=== PATIENT | male | born 1980 | race African-American/Black ===

== ENCOUNTER 2018-10-10 14:31 | Emergency (ER) | payer OTHER ==
[2018-10-10 14:42] VITALS: BMI 20.6
[2018-10-10] MEDS ORDERED: SODIUM CHLORIDE 1,000 ML IV STA (15:00)
[2018-10-10] MEDS ORDERED: ONDANSETRON 4 MG/2 ML VIAL IVPUSH ONE ×2 (15:00→16:44)
[2018-10-10] MEDS ORDERED: KETOROLAC TROMETHAMINE 30 MG/1 ML VIAL IVPUSH ONE (15:00)
[2018-10-10] MEDS ORDERED: PANTOPRAZOLE SODIUM 40 MG in SODIUM CHLORIDE 100 ML IVPB ONE (15:00)
[2018-10-10] MEDS ORDERED: PANTOPRAZOLE SODIUM 40 MG/100 ML BAG IVPB ONE (15:11)
[2018-10-10 15:32] LABS: BASO % 1.2 % (0-2.0); EOS % 3.4 % (0-4.5); HEMATOCRIT 42.7 % (35.4-49); HEMOGLOBIN 14.2 GM/dL (11.7-16.9); LYMPH % 35.2 % (8-40); MCH 30.3 pg (25.7-33.7); MCHC 33.3 g/dl (32.0-35.9); MEAN PLT VOLUME 8.8 fl (7.5-11.1); MONO % 5.5 % (3.8-10.2); NEUT % 54.7 % (42.8-82.8); PLATELET COUNT 250 K/MM3 (134-434); RBC 4.69 M/mm3 (4.00-5.60); WHITE BLOOD COUNT 9.1 K/mm3 (4.0-10.0)
--- NOTE | 2018-10-10 15:43 | PDOC ---
History of Present Illness - General Chief Complaint: Pain Stated Complaint: ABD PAIN History Source: Patient Exam Limitations: No Limitations - History of Present Illness Travel History: No Initial Comments: 10/10/18 15:09 38-year-old male with history of gastritis currently on Prilosec presents the ED with complaints of mild nausea and sour feeling to epigastric area for the past week intermittently without relief of Maalox and Zantac. Patient states does drink alcohol and smokes marijuana daily basis and often eats processed fast food patient denies any recent travel, recent weight loss, diarrhea, vomiting, chest pain, difficulty breathing or abdominal distention. Timing/Duration: reports: intermittent Quality: reports: mild, dullness Abdominal Pain Onset Location: reports: epigastric Pain Radiation: reports: no radiation Activities at Onset: reports: none Aggravating Factors: improves with: Eating Alleviating Factors: improves with: None Past History - Travel Traveled outside of the country in the last 30 days: No Close contact w/someone who was outside of country & ill: No - Past Medical History Allergies/Adverse Reactions: Allergies Allergy/AdvReac Type Severity Reaction Status Date / Time No Known Allergies Allergy Verified 10/10/18 15:26 Home Medications: Ambulatory Orders Omeprazole 20 mg PO DAILY 10/10/18 Ondansetron HCl [Zofran] 4 mg PO QID #10 tablet 10/10/18 Sucralfate Oral Suspension [Carafate *Oral Susp*] 1 gm PO QID #42 gm 10/10/18 COPD: No GI Disorders: Yes - Immunization History Immunization Up to Date: Yes - Suicide/Smoking/Psychosocial Hx Smoking History: Current every day smoker Number of Cigarettes Smoked Daily: 20 Information on smoking cessation initiated: No Hx Alcohol Use: Yes Drug/Substance Use Hx: Yes ([facility]) Substance Use Type: Marijuana Patient Lives Alone: No Lives with/in: spouse/SO Abd/GI Specific PMHX - Complaint Specific PMHX GERD: Yes Review of Systems - Review of Systems Able to Perform ROS?: Yes Constitutional: No: Symptoms Reported HEENTM: No: Symptoms Reported Respiratory: No: Symptoms reported Cardiac (ROS): No: Symptoms Reported ABD/GI: Yes: Nausea, Indigestion : No: Symptoms Reported Musculoskeletal: No: Symptoms Reported Integumentary: No: Symptoms Reported Neurological: No: Symptoms reported Hematologic/Lymphatic: No: Symptoms Reported *Physical Exam - Vital Signs Last Vital Signs Temp Pulse Resp BP Pulse Ox 97.9 F 99 H 18 123/75 100 10/10/18 14:39 10/10/18 14:39 10/10/18 14:39 10/10/18 14:39 10/10/18 14:39 - Physical Exam General Appearance: Yes: Nourished, Appropriately Dressed. No: Apparent Distress HEENT: positive: EOMI, Pharynx Normal. negative: Pale Conjunctivae Neck: positive: Normal Thyroid, Supple Respiratory/Chest: positive: Lungs Clear, Normal Breath Sounds. negative: Respiratory Distress, Accessory Muscle Use Cardiovascular: positive: Regular Rhythm, Regular Rate. negative: Murmur Gastrointestinal/Abdominal: positive: Normal Bowel Sounds, Soft, Tenderness ( mild epigastric /right upper quadrant). negative: Distended Musculoskeletal: negative: CVA Tenderness Extremity: positive: Normal Inspection Integumentary: positive: Normal Color, Warm, Moist Neurologic: positive: Motor Strength 5/5 (ambulatory) ED Treatment Course - LABORATORY CBC & Chemistry Diagram: 10/10/18 15:08 10/10/18 15:08 - ADDITIONAL ORDERS Additional order review: 10/10/18 15:08 RBC 4.69 MCV 91.0 MCHC 33.3 RDW 14.0 MPV 8.8 Neutrophils % 54.7 Lymphocytes % 35.2 Monocytes % 5.5 Eosinophils % 3.4 Basophils % 1.2 - Medications Given in the ED: ED Medications Discontinued Medications Generic Name Dose Route Start Last Admin Trade Name Freq PRN Reason Stop Dose Admin Pantoprazole Sodium 40 mg/ 100 mls @ 200 mls/hr 10/10/18 15:00 10/10/18 15:25 Sodium Chloride IVPB 10/10/18 15:29 200 mls/hr ONCE ONE Administration Ketorolac Tromethamine 30 mg 10/10/18 15:00 10/10/18 15:26 Toradol Injection - IVPUSH 10/10/18 15:01 30 mg ONCE ONE Administration Ondansetron HCl 4 mg 10/10/18 15:00 10/10/18 15:34 Zofran Injection IVPUSH 10/10/18 15:01 4 mg ONCE ONE Administration Medical Decision Making - Medical Decision Making 10/10/18 15:22 Chief complaint: Feeling of nausea along with "sour" sensation for the past week after eating unrelieved with Maalox and his daily medication of Prilosec for history of GERD Exam patient mild epigastric and right upper quadrant tenderness vital signs stable. Plan CBC, comp, lipase IV protonic's, Zofran, Toradol and IV fluids ordered 10/10/18 15:44 Laboratory Tests 10/10/18 15:08 WBC 9.1 Hgb 14.2 Hct 42.7 Absolute Neuts (auto) 5.0 *DC/Admit/Observation/Transfer Diagnosis at time of Disposition: Gastritis - Discharge Dispostion Disposition: HOME Condition at time of disposition: Stable - Prescriptions Prescriptions: Ondansetron HCl [Zofran] 4 mg PO QID #10 tablet Sucralfate Oral Suspension [Carafate *Oral Susp*] 1 gm PO QID #42 gm - Referrals - Patient Instructions Printed Discharge Instructions: DI for Gastritis Additional Instructions: Your Discharge Instructions: You must call primary care physician within 24 hours to arrange follow-up. Return to the Emergency Department with any new, persistent or worsening symptoms, for fever, chills, SOB, dizziness or any other concerning changes that may occur. Her aircraft sales representative call to reschedule your appointment - Post Discharge Activity
[2018-10-10 15:53] LABS: ALBUMIN 4.1 g/dl (3.4-5.0); BILIRUBIN,TOTAL 1.1 mg/dL (0.2-1); BLOOD UREA NITROGEN 7.9 mg/dL (7-18); CALCIUM 9.6 mg/dL (8.5-10.1); CREATININE 1.1 mg/dL (0.55-1.3); MAGNESIUM 2.4 mg/dL (1.8-2.4); POTASSIUM 3.7 mmol/L (3.5-5.1); TOT PROT 7.1 g/dl (6.4-8.2)
--- NOTE | 2018-10-10 16:43 | PDOC ---
*Physical Exam - Vital Signs Last Vital Signs Temp Pulse Resp BP Pulse Ox 97.9 F 99 H 18 123/75 100 10/10/18 14:39 10/10/18 14:39 10/10/18 14:39 10/10/18 14:39 10/10/18 14:39 ED Treatment Course - LABORATORY CBC & Chemistry Diagram: 10/10/18 15:08 10/10/18 15:08 - ADDITIONAL ORDERS Additional order review: Laboratory Results 10/10/18 15:08 Sodium 142 Potassium 3.7 Chloride 108 H Carbon Dioxide 28 Anion Gap 7 L BUN 7.9 Creatinine 1.1 Est GFR (CKD-EPI)AfAm 99.57 Est GFR (CKD-EPI)NonAf 85.91 Random Glucose 124 H Calcium 9.6 Magnesium 2.4 Total Bilirubin 1.1 H AST 17 ALT 19 Alkaline Phosphatase 68 Total Protein 7.1 Albumin 4.1 Lipase 213 10/10/18 15:08 RBC 4.69 MCV 91.0 MCHC 33.3 RDW 14.0 MPV 8.8 Neutrophils % 54.7 Lymphocytes % 35.2 Monocytes % 5.5 Eosinophils % 3.4 Basophils % 1.2 - Medications Given in the ED: ED Medications Discontinued Medications Generic Name Dose Route Start Last Admin Trade Name Freq PRN Reason Stop Dose Admin Pantoprazole Sodium 40 mg/ 100 mls @ 200 mls/hr 10/10/18 15:00 10/10/18 15:25 Sodium Chloride IVPB 10/10/18 15:29 200 mls/hr ONCE ONE Administration Sodium Chloride 1,000 mls @ 1,000 mls/hr 10/10/18 15:00 10/10/18 15:25 Normal Saline - IV 10/10/18 15:59 1,000 mls/hr ASDIR STA Administration Ketorolac Tromethamine 30 mg 10/10/18 15:00 10/10/18 15:26 Toradol Injection - IVPUSH 10/10/18 15:01 30 mg ONCE ONE Administration Ondansetron HCl 4 mg 10/10/18 15:00 10/10/18 15:34 Zofran Injection IVPUSH 10/10/18 15:01 4 mg ONCE ONE Administration Medical Decision Making - Medical Decision Making 10/10/18 16:38 Patient endorsed to me to follow labs and disposition Patient seen and evaluated still complains of a soreness in the epigastric area and nausea. Continue treatment with Zofran, Carafate. Reassess. States still feels symptomatic given Carafate 10/10/18 19:26 Patient feels improved and would like to be discharged home. I discussed the physical exam findings, ancillary test results and final diagnoses with the patient. I answered all of the patient's questions. The patient was satisfied with the care received and felt comfortable with the discharge plan and treatment plan. The Patient agrees to follow up with the primary care physician within 24-72 hours. *DC/Admit/Observation/Transfer Diagnosis at time of Disposition: Gastritis Qualifiers: Gastritis type: unspecified gastritis Chronicity: unspecified Gastritis bleeding: without bleeding Qualified Code(s): K29.70 - Gastritis, unspecified, without bleeding - Discharge Dispostion Disposition: HOME Condition at time of disposition: Stable - Referrals - Patient Instructions Printed Discharge Instructions: DI for Gastritis Additional Instructions: Your Discharge Instructions: You must call primary care physician within 24 hours to arrange follow-up. Return to the Emergency Department with any new, persistent or worsening symptoms, for fever, chills, SOB, dizziness or any other concerning changes that may occur. Her audit practice intern call to reschedule your appointment - Post Discharge Activity
[2018-10-10] MEDS ORDERED: FAMOTIDINE 20 MG/50 ML IVPB 20 MG/50 ML MG IVPB ONE ×2 (16:44→17:11)
[2018-10-10] MEDS ORDERED: SODIUM CHLORIDE 0.9% 500 ML INFUS.BAG IV ONE (17:21)
[2018-10-10] MEDS ORDERED: SUCRALFATE 1 GM/10 ML UNIT DOSE CUPS PO ONE (18:45)
[2018-10-10] MEDS ORDERED: SUCRALFATE 1 GM TABLET (FP) ONE (18:48)
[2018-10-10 18:52] VITALS: BP 118/50; PULSE 65; TEMP 97.5
== END 2018-10-10 20:34 | disposition home or self-care (01) ==
LOC: JER 14:31
PROC: 3E033GC Introduction of Other Therapeutic Substance into Peripheral Vein, Percutaneous Approach (ICD-10-PCS; principal; 2018-10-10)
PROC: 3E0337Z Introduction of Electrolytic and Water Balance Substance into Peripheral Vein, Percutaneous Approach (ICD-10-PCS; 2018-10-10)
DX: K29.70 Gastritis, unspecified, without bleeding (principal); F17.210 Nicotine dependence, cigarettes, uncomplicated
CPT/HCPCS: 36415; 80053; 83690; 83735; 85025; 96361; 96365; 96367; 96375; 96376; 99283-25; J7030

== ENCOUNTER 2020-05-06 06:58 | Emergency (ER) | payer OTHER ==
[2020-05-06 07:30] VITALS: TEMP 97; BMI 21.7
[2020-05-06] MEDS ORDERED: LACTATED RINGERS SOLUTION 1,000 ML IV STA (07:56)
[2020-05-06] MEDS ORDERED: ACETAMINOPHEN 1000 MG/100 ML VIAL (NON FORMULARY) IVPB ONE (07:56)
[2020-05-06] MEDS ORDERED: ONDANSETRON 4 MG/2 ML VIAL IVPUSH ONE (07:56)
[2020-05-06] MEDS ORDERED: FAMOTIDINE 20 MG/50 ML IVPB 20 MG/50 ML MG IVPB ONE (07:56)
[2020-05-06] MEDS ORDERED: MAG HYDROX/AL HYDROX/SIMETH 30 ML UNIT-DOSE CUP PO ONE (07:57)
[2020-05-06] MEDS ORDERED: ONDANSETRON 4 MG/2 ML VIAL ONE (08:07)
[2020-05-06] MEDS ORDERED: ACETAMINOPHEN INJECTION 100 ML IVPB ONE (08:07)
[2020-05-06] MEDS ORDERED: LACTATED RINGERS SOLUTION 1,000 ML/1,000 ML INFUS.BAG IV STA (08:14)
[2020-05-06 08:48] LABS: BASO % 1.1 % (0-2.0); EOS % 2.6 % (0-4.5); HEMATOCRIT 45.3 % (35.4-49); HEMOGLOBIN 15.3 GM/dL (11.7-16.9); LYMPH % 18.7 % (8-40); MCH 30.5 pg (25.7-33.7); MCHC 33.9 g/dl (32.0-35.9); MEAN CELL VOLUME 90.2 fl (80-96); MEAN PLT VOLUME 8.2 fl (7.5-11.1); MONO % 4.9 % (3.8-10.2); NEUT % 72.7 % (42.8-82.8); PLATELET COUNT 244 K/MM3 (134-434); RBC 5.02 M/mm3 (4.00-5.60); RDW 14.7 % (11.9-15.9); WHITE BLOOD COUNT 10.4 K/mm3 (4.0-10.0)
[2020-05-06 09:15] LABS: POTASSIUM 4.3 mmol/L (3.5-5.1)
[2020-05-06 09:17] LABS: CALCIUM 9.8 mg/dL (8.5-10.1)
[2020-05-06 09:18] LABS: ALBUMIN 4.5 g/dl (3.4-5.0); BLOOD UREA NITROGEN 7.4 mg/dL (7-18)
[2020-05-06 09:21] LABS: CREATININE 0.9 mg/dL (0.55-1.3)
[2020-05-06 09:22] LABS: TOT PROT 8.2 g/dl (6.4-8.2)
[2020-05-06] MEDS ORDERED: METOCLOPRAMIDE HCL INJECTION 10 MG/2 ML VIAL ONE (09:38)
[2020-05-06] MEDS ORDERED: METOCLOPRAMIDE HCL INJECTION 10 MG/2 ML VIAL IVPUSH ONE (09:41)
[2020-05-06] MEDS ORDERED: HALOPERIDOL LACTATE 5 MG/ML IM ONE (10:36)
[2020-05-06] MEDS ORDERED: HALOPERIDOL LACTATE 5 MG/ML ONE (10:39)
[2020-05-06] MEDS ORDERED: diphenhydrAMINE HCL 25 MG CAPSULE (FP) PO ONE ×2 (12:03→12:06)
[2020-05-06 12:05] VITALS: BP 122/79; PULSE 68
== END 2020-05-06 12:13 | disposition home or self-care (01) ==
LOC: JER 06:58
PROC: 3E033NZ Introduction of Analgesics, Hypnotics, Sedatives into Peripheral Vein, Percutaneous Approach (ICD-10-PCS; principal; 2020-05-06)
PROC: 3E033GC Introduction of Other Therapeutic Substance into Peripheral Vein, Percutaneous Approach (ICD-10-PCS; 2020-05-06)
PROC: 3E0337Z Introduction of Electrolytic and Water Balance Substance into Peripheral Vein, Percutaneous Approach (ICD-10-PCS; 2020-05-06)
PROC: 3E023NZ Introduction of Analgesics, Hypnotics, Sedatives into Muscle, Percutaneous Approach (ICD-10-PCS; 2020-05-06)
DX: R11.2 Nausea with vomiting, unspecified (principal); R19.7 Diarrhea, unspecified
CPT/HCPCS: 36415; 80053; 83690; 85025; 93005; 93010; 99285-25; C9803; J0131; U0003

== ENCOUNTER 2021-02-25 16:18 | Emergency (ER) | payer OTHER ==
[2021-02-25 16:28] VITALS: BMI 20.3
[2021-02-25] MEDS ORDERED: ONDANSETRON 4 MG/2 ML VIAL IVPUSH ONE (17:09)
[2021-02-25] MEDS ORDERED: ACETAMINOPHEN 1000 MG/100 ML BAG IVPB ONE (17:09)
[2021-02-25] MEDS ORDERED: SODIUM CHLORIDE 1,000 ML IV STA (17:09)
[2021-02-25] MEDS ORDERED: ONDANSETRON 4 MG/2 ML VIAL ONE (17:15)
[2021-02-25] MEDS ORDERED: ACETAMINOPHEN INJECTION 100 ML IVPB ONE (17:15)
[2021-02-25] MEDS ORDERED: METOCLOPRAMIDE HCL INJECTION 10 MG/2 ML VIAL IVPB ONE (18:21)
[2021-02-25] MEDS ORDERED: METOCLOPRAMIDE HCL INJECTION 10 MG/2 ML VIAL ONE ×2 (18:32→18:43)
[2021-02-25] MEDS ORDERED: IBUPROFEN 600 MG TABLET (FP) PO ONE ×2 (18:33→18:43)
[2021-02-25] MEDS: IBUPROFEN 600 MG TABLET (FP) PO ONE ×2 (19:01→19:04)
[2021-02-25] MEDS ORDERED: FAMOTIDINE 20 MG TABLET PO ONE (20:11)
[2021-02-25] MEDS ORDERED: ONDANSETRON *ODT* 4 MG TABLET SL ONE (20:12)
[2021-02-25] MEDS ORDERED: ONDANSETRON *ODT* 4 MG TABLET ONE (20:25)
[2021-02-25] MEDS ORDERED: FAMOTIDINE 20 MG TABLET ONE (20:25)
[2021-02-25] MEDS ORDERED: diphenhydrAMINE HCL 25 MG CAPSULE (FP) PO ONE ×2 (20:41→20:56)
[2021-02-25 21:08] VITALS: BP 97/62; PULSE 84; TEMP 98.3
[2021-02-27 17:09] LABS: SARS-CoV-2 NAA Detected (Not Detected)
== END 2021-02-25 21:54 | disposition home or self-care (01) ==
LOC: JER 16:18
DX: K29.00 Acute gastritis without bleeding (principal); R50.9 Fever, unspecified
CPT/HCPCS: 99283-25; C9803; J0131; Q0162; U0003; U0005

== ENCOUNTER 2022-08-04 12:03 | Emergency (ER) | payer OTHER ==
[2022-08-04 12:08] VITALS: BP 112/77; PULSE 96; RESP 19; TEMP 98.2; BMI 23.7
[2022-08-04] MEDS ORDERED: IBUPROFEN 400 MG TABLET (FP) PO ONE ×2 (12:46→12:47)
[2022-08-04] MEDS ORDERED: ACETAMINOPHEN 500 MG TABLET (FP) PO ONE (12:46)
[2022-08-04] MEDS ORDERED: ONDANSETRON 4 MG TABLET PO ONE ×2 (12:46→12:47)
[2022-08-04] MEDS ORDERED: ACETAMINOPHEN 500 MG TABLET (FP) ONE (12:48)
[2022-08-04 13:34] LABS: THROAT:GRP A STREP NOT DETECTED (NOTDETECTED)
== END 2022-08-04 14:00 | disposition home or self-care (01) ==
LOC: JERFT 12:03
DX: R07.0 Pain in throat (principal); R09.89 Other specified symptoms and signs involving the circulatory and respiratory systems; R09.81 Nasal congestion; R51.9 Headache, unspecified; M79.10 Myalgia, unspecified site; J06.9 Acute upper respiratory infection, unspecified; B97.89 Other viral agents as the cause of diseases classified elsewhere; Z20.822 Contact with and (suspected) exposure to COVID-19
CPT/HCPCS: 0241U-QW; 87651; 99283-25

== ENCOUNTER 2023-06-09 20:53 | Emergency (ER) | payer OTHER ==
[2023-06-09 21:05] VITALS: BP 118/78; PULSE 82; RESP 18; TEMP 98.1; BMI 22.4
[2023-06-09] MEDS ORDERED: ONDANSETRON 4 MG/2 ML VIAL ONE (22:33)
[2023-06-09] MEDS ORDERED: ACETAMINOPHEN INJECTION 100 ML IVPB ONE (22:33)
[2023-06-09] MEDS ORDERED: FAMOTIDINE 20 MG/50 ML IVPB 20 MG/50 ML MG IVPB ONE (22:34)
[2023-06-09] MEDS: ACETAMINOPHEN 1000 MG/100 ML BAG IVPB ONE (22:50)
[2023-06-09] MEDS: FAMOTIDINE 20 MG/50 ML IVPB 20 MG/50 ML MG IVPB ONE (22:50)
[2023-06-09] MEDS: ONDANSETRON 4 MG/2 ML VIAL IVPUSH ONE (22:50)
[2023-06-09] MEDS: LACTATED RINGERS SOLUTION 1000 ML INFUS.BAG IV ONE (22:50)
[2023-06-09 23:00] LABS: BASO % 1.2 % (0-2.0); EOS % 4.2 % (0-4.5); HEMATOCRIT 42.3 % (35.4-49); HEMOGLOBIN 14.1 GM/dL (11.7-16.9); LYMPH % 38.7 % (8-40); MCH 30.2 pg (25.7-33.7); MCHC 33.2 g/dl (32.0-35.9); MEAN CELL VOLUME 90.9 fl (80-96); MEAN PLT VOLUME 7.7 fl (7.5-11.1); MONO % 7.7 % (3.8-10.2); NEUT % 48.2 % (42.8-82.8); PLATELET COUNT 253 10^3/uL (134-434); RBC 4.66 M/mm3 (4.00-5.60); RDW 14.7 % (11.9-15.9)
[2023-06-09 23:03] LABS: INR 0.96 (0.83-1.09); PROTHROMBIN TIME (PATIENT) 11.1 SEC (9.7-13.0)
[2023-06-09 23:06] LABS: ACTIVATED PTT 30.3 SECONDS (25.2-36.5)
[2023-06-09 23:16] LABS: POTASSIUM 4.2 mmol/L (3.5-5.1)
[2023-06-09 23:21] LABS: CALCIUM 9.5 mg/dL (8.5-10.1)
[2023-06-09 23:22] LABS: ALBUMIN 3.8 g/dl (3.4-5.0); BLOOD UREA NITROGEN 7.9 mg/dL (7-18); MAGNESIUM 2.3 mg/dL (1.8-2.4)
[2023-06-09 23:25] LABS: CREATININE 0.7 mg/dL (0.55-1.3)
[2023-06-09 23:26] LABS: BILIRUBIN,TOTAL 0.5 mg/dL (0.2-1); TOT PROT 6.8 g/dl (6.4-8.2)
[2023-06-10] MEDS ORDERED: LIDOCAINE VISCOUS 2% ORAL/TOP 15 ML UNIT-DOSE CUP ONE (00:36)
[2023-06-10] MEDS ORDERED: MAG HYDROX/AL HYDROX/SIMETH 30 ML UNIT-DOSE CUP ONE (00:36)
[2023-06-10] MEDS: MAG HYDROX/AL HYDROX/SIMETH -MYLANTA- ORAL SUSPENSION PO ONE (00:47)
[2023-06-10] MEDS: LIDOCAINE VISCOUS 2% ORAL/TOP 15 ML UNIT-DOSE CUP MM ONE (00:47)
== END 2023-06-10 01:29 | disposition home or self-care (01) ==
LOC: JER 20:53
PROC: 3E033GC Introduction of Other Therapeutic Substance into Peripheral Vein, Percutaneous Approach (ICD-10-PCS; principal; 2023-06-09)
PROC: 3E033GC Introduction of Other Therapeutic Substance into Peripheral Vein, Percutaneous Approach (ICD-10-PCS; 2023-06-09)
PROC: 3E033NZ Introduction of Analgesics, Hypnotics, Sedatives into Peripheral Vein, Percutaneous Approach (ICD-10-PCS; 2023-06-09)
DX: R11.2 Nausea with vomiting, unspecified (principal); R10.13 Epigastric pain; R19.7 Diarrhea, unspecified; K29.70 Gastritis, unspecified, without bleeding
CPT/HCPCS: 36415; 71046-TC-FY; 80053; 83690; 83735; 84484; 85025; 85610; 85730; 93005; 93010; 99285-25; J0131

== ENCOUNTER 2023-09-28 16:51 | Emergency (ER) | payer OTHER ==
[2023-09-28 18:01] VITALS: BP 114/74; PULSE 77; RESP 18; TEMP 99; BMI 21.7
[2023-09-28] MEDS ORDERED: ONDANSETRON 4 MG/2 ML VIAL ONE (18:48)
[2023-09-28] MEDS ORDERED: MAG HYDROX/AL HYDROX/SIMETH 30 ML UNIT-DOSE CUP ONE (18:48)
[2023-09-28] MEDS: ONDANSETRON 4 MG/2 ML VIAL IVPB ONE (18:54)
[2023-09-28] MEDS: MAG HYDROX/AL HYDROX/SIMETH -MYLANTA- ORAL SUSPENSION PO ONE (18:54)
[2023-09-28] MEDS: SODIUM CHLORIDE 0.9% 500 ML INFUS.BAG IV ONE (18:54)
[2023-09-28 19:24] LABS: POTASSIUM 4.6 mmol/L (3.5-5.1)
[2023-09-28 19:26] LABS: CALCIUM 9.8 mg/dL (8.5-10.1)
[2023-09-28 19:27] LABS: ALBUMIN 4.3 g/dl (3.4-5.0); BLOOD UREA NITROGEN 9.1 mg/dL (7-18)
[2023-09-28 19:31] LABS: BILIRUBIN,TOTAL 1.4 mg/dL (0.2-1); TOT PROT 7.5 g/dl (6.4-8.2)
[2023-09-28 19:34] LABS: BASO % 1.2 % (0-2.0); EOS % 3.5 % (0-4.5); HEMATOCRIT 43.4 % (35.4-49); HEMOGLOBIN 14.7 GM/dL (11.7-16.9); LYMPH % 31.6 % (8-40); MCH 30.7 pg (25.7-33.7); MCHC 33.8 g/dl (32.0-35.9); MEAN CELL VOLUME 90.9 fl (80-96); MEAN PLT VOLUME 8.7 fl (7.5-11.1); MONO % 7.8 % (3.8-10.2); NEUT % 55.9 % (42.8-82.8); PLATELET COUNT 259 10^3/uL (134-434); RBC 4.78 M/mm3 (4.00-5.60); RDW 13.7 % (11.9-15.9); WHITE BLOOD COUNT 10.6 K/mm3 (4.0-10.0)
== END 2023-09-28 22:51 | disposition home or self-care (01) ==
LOC: JER 16:51
PROC: 3E033GC Introduction of Other Therapeutic Substance into Peripheral Vein, Percutaneous Approach (ICD-10-PCS; principal; 2023-09-28)
DX: R11.2 Nausea with vomiting, unspecified (principal); R63.0 Anorexia
CPT/HCPCS: 36415; 80053; 83690; 85025; 99284-25

== ENCOUNTER 2023-10-24 19:22 | Emergency (ER) | payer OTHER ==
[2023-10-24 19:30] VITALS: BP 119/76; PULSE 82; RESP 18; TEMP 98.6; BMI 21.7
[2023-10-24 20:26] LABS: THROAT:GRP A STREP NOT DETECTED (NOTDETECTED)
[2023-10-24] MEDS ORDERED: FAMOTIDINE 20 MG/50 ML IVPB 20 MG/50 ML MG IVPB ONE (21:35)
[2023-10-24] MEDS ORDERED: ONDANSETRON 4 MG/2 ML VIAL ONE (21:35)
[2023-10-24] MEDS: SODIUM CHLORIDE 0.9% 500 ML INFUS.BAG IV ONE ×2 (21:43→23:34)
[2023-10-24] MEDS: FAMOTIDINE 20 MG/50 ML IVPB 20 MG/50 ML MG IVPB ONE (21:43)
[2023-10-24] MEDS: ONDANSETRON 4 MG/2 ML VIAL IVPUSH ONE (21:43)
[2023-10-24 21:44] LABS: BASO % 0.8 % (0-2.0); EOS % 2.9 % (0-4.5); HEMOGLOBIN 15.4 GM/dL (11.7-16.9); LYMPH % 9.4 % (8-40); MCH 30.8 pg (25.7-33.7); MCHC 34.2 g/dl (32.0-35.9); MEAN CELL VOLUME 90.2 fl (80-96); MEAN PLT VOLUME 7.9 fl (7.5-11.1); NEUT % 79.9 % (42.8-82.8); PLATELET COUNT 259 10^3/uL (134-434); RBC 4.99 M/mm3 (4.00-5.60); RDW 14.5 % (11.9-15.9)
[2023-10-24 22:03] LABS: ALBUMIN 4.4 g/dl (3.4-5.0); BLOOD UREA NITROGEN 7.8 mg/dL (7-18)
[2023-10-24 22:07] LABS: CREATININE 0.8 mg/dL (0.55-1.3)
[2023-10-24 22:08] LABS: BILIRUBIN,TOTAL 1.2 mg/dL (0.2-1); TOT PROT 7.6 g/dl (6.4-8.2)
[2023-10-24] MEDS: MAG HYDROX/ALH/SMC/DPHA/LIDO 240 ML MOUTHWASH MM ONE (22:16)
[2023-10-24 22:45] LABS: URINE APPEARANCE CLEAR; URINE BILIRUBIN NEGATIVE (NEGATIVE); URINE COLOR YELLOW; URINE GLUCOSE (UA) NEGATIVE (NEGATIVE); URINE KETONE 2+ (NEGATIVE); URINE LEUK ESTERASE NEGATIVE (NEGATIVE); URINE NITRITE NEGATIVE (NEGATIVE); URINE PROTEIN NEGATIVE (NEGATIVE)
[2023-10-24] MEDS ORDERED: PROCHLORPERAZINE INJECTION 10 MG/2 ML VIAL ONE (23:27)
[2023-10-24] MEDS: PROCHLORPERAZINE INJECTION 10 MG/2 ML VIAL IVPB ONE (23:34)
[2023-10-25] MEDS: HALOPERIDOL LACTATE 5 MG/ML IVPUSH ONE (00:44)
[2023-10-25] MEDS ORDERED: MAG HYDROX/ALH/SMC/DPHA/LIDO 240 ML MOUTHWASH MM ONE (21:36)
== END 2023-10-25 01:40 | disposition home or self-care (01) ==
LOC: JERFT 19:22 → JER 19:22
PROC: 3E033GC Introduction of Other Therapeutic Substance into Peripheral Vein, Percutaneous Approach (ICD-10-PCS; principal; 2023-10-24)
PROC: 3E033GC Introduction of Other Therapeutic Substance into Peripheral Vein, Percutaneous Approach (ICD-10-PCS; 2023-10-24)
PROC: 3E033GC Introduction of Other Therapeutic Substance into Peripheral Vein, Percutaneous Approach (ICD-10-PCS; 2023-10-24)
DX: K52.9 Noninfective gastroenteritis and colitis, unspecified (principal); E86.0 Dehydration; Z20.822 Contact with and (suspected) exposure to COVID-19
CPT/HCPCS: 0241U-QW; 36415; 71046-TC-FY; 76705-TC; 80053; 81003; 83690; 85025; 87086; 87651; 99284-25

== ENCOUNTER 2024-10-14 18:11 | Emergency (ER) | payer BC ==
[2024-10-14 18:19] VITALS: BP 101/83; PULSE 83; RESP 19; TEMP 98.2; BMI 20.3
[2024-10-14] MEDS ORDERED: FAMOTIDINE 20 MG/50 ML IVPB 20 MG/50 ML MG IVPB ONE (19:38)
[2024-10-14] MEDS ORDERED: ONDANSETRON 4 MG/2 ML VIAL ONE (19:38)
[2024-10-14 19:55] LABS: BASOPHILS # 0.10 x10^3/uL (0.01-0.08); RDW 13.5 % (12.1-15.9)
[2024-10-14 19:57] LABS: ABSOLUTE IMMATURE GRANULOCYTES 0.02 x10^3/uL (0.0-0.031); EOSINOPHIL % 3.4 % (0.8-7.0); EOSINOPHILS # 0.34 x10^3/uL (0.04-0.54); IMMATURE PLATELET FRACTION # 10.50 x10^3/uL; MCHC 32.8 g/dl (32.3-36.5); MEAN CELL VOLUME 90.6 fl (79.0-92.2); MEAN PLT VOLUME 10.1 fl (9.4-12.4); MONOCYTE # 0.63 x10^3/uL (0.30-0.82); MONOCYTE % 6.4 % (5.3-12.2)
[2024-10-14] MEDS: FAMOTIDINE 20 MG/50 ML IVPB 20 MG/50 ML MG IVPB ONE (19:57)
[2024-10-14] MEDS: SODIUM CHLORIDE 0.9% 500 ML INFUS.BAG IV ONE (19:58)
[2024-10-14] MEDS: ONDANSETRON 4 MG/2 ML VIAL IVPUSH ONE (19:58)
[2024-10-14 20:29] LABS: GLUCOSE,RANDOM 92.0 mg/dL (74-106); TOT PROT 7.3 g/dl (6.4-8.2)
[2024-10-14 20:30] LABS: CO2 28.0 mmol/L (21-32)
[2024-10-14 20:32] LABS: ALK PHOS 76.0 U/L (40-150)
[2024-10-14 20:35] LABS: CREATININE 0.83 mg/dL (0.55-1.3); SGOT/AST 21.0 U/L (5-34); SGPT/ALT 17.0 U/L (0-55)
[2024-10-14 20:55] LABS: HCV DIAGNOSTIC IN-HOUSE W/RFLX NON-REACTIVE (NONREACTIVE)
[2024-10-14 20:56] LABS: HIV INTERPRETATION NEGATIVE (NEGATIVE)
[2024-10-14] MEDS ORDERED: MAG HYDROX/AL HYDROX/SIMETH 30 ML UNIT-DOSE CUP ONE (21:06)
[2024-10-14] MEDS ORDERED: LIDOCAINE VISCOUS 2% ORAL/TOP 15 ML UNIT-DOSE CUP ONE (21:08)
[2024-10-14] MEDS: LIDOCAINE VISCOUS 2% ORAL/TOP 15 ML UNIT-DOSE CUP MM ONE (21:24)
[2024-10-14] MEDS: MAG HYDROX/AL HYDROX/SIMETH 30 ML UNIT-DOSE CUP PO ONE (21:24)
== END 2024-10-14 21:43 | disposition home or self-care (01) ==
LOC: JER 18:11
PROC: 3E033GC Introduction of Other Therapeutic Substance into Peripheral Vein, Percutaneous Approach (ICD-10-PCS; principal; 2024-10-14)
PROC: 3E033GC Introduction of Other Therapeutic Substance into Peripheral Vein, Percutaneous Approach (ICD-10-PCS; 2024-10-14)
DX: R11.2 Nausea with vomiting, unspecified (principal); R10.13 Epigastric pain
CPT/HCPCS: 36415; 80053; 83690; 85025; 86803; 87389; 99284-25